=== PATIENT | male | born 1930 | race African-American/Black ===

== ENCOUNTER 2016-05-04 20:33 | Inpatient (IN) | payer BC, OTHER, MEDICAID ==
[~2016-05-04] VITALS: Ht 188 cm; Wt 99.3 kg
[2016-05-04 20:58] LABS: MEAN CORPUSCULAR HEMOGLOBIN 30.8 PG (27.0-31.0); MEAN CORPUSCULAR HGB CONC 32.8 G/DL (32.0-36.0); MEAN CORPUSCULAR VOLUME 94 FL (80-99); MEAN PLATELET VOLUME 6.2 FL (6.5-10.1); PLATELET COUNT 110 K/UL (150-450); RED BLOOD COUNT 2.87 M/UL (4.70-6.10); RED CELL DISTRIBUTION WIDTH 14.9 % (11.6-14.8); WHITE BLOOD COUNT 5.6 K/UL (4.8-10.8)
[2016-05-04 21:00] VITALS: BP 91/49
[2016-05-04 21:05] LABS: BASOPHILS % (AUTO) 0.4 % (0.0-2.0); EOSINOPHILS % (AUTO) 0.1 % (0.0-3.0); LYMPHOCYTES % (AUTO) 4.6 % (20.0-45.0); MONOCYTES % (AUTO) 2.9 % (1.0-10.0)
[2016-05-04 21:10] LABS: ALANINE AMINOTRANSFERASE 39 U/L (3-41); ALBUMIN/GLOBULIN RATIO 1.1 (1.0-2.7); ANION GAP 17 (5-15); ASPARTATE AMINO TRANSFERASE 52 U/L (5-40); CALCIUM 9.4 mg/dL (8.6-10.2); CARBON DIOXIDE 30 mEQ/L (20-30); CHLORIDE 92 mEQ/L (98-107); CREATININE 8.3 mg/dL (0.7-1.2); HEMOLYSIS 13; LIPASE 70 U/L (< 60); POTASSIUM 4.3 mEQ/L (3.4-4.9); SODIUM 139 mEQ/L (135-145); TOTAL PROTEIN 6.9 g/dL (6.6-8.7); TROPONIN I < 0.30 ng/mL (<=0.30)
[2016-05-04] MEDS ORDERED: SENSIPAR90 MG PO (21:15)
[2016-05-04] MEDS ORDERED: OXYCODONE-ACET1 EAC3 ORAL (21:15)
[2016-05-04] MEDS ORDERED: VITAMIN D1000 UNI1 ORAL (21:15)
[2016-05-04] MEDS ORDERED: ENSURE LIQUID237 ML PO (21:15)
[2016-05-04] MEDS ORDERED: LORATADINE10 M2 PO (21:15)
[2016-05-04] MEDS ORDERED: CALCIUM ACETAT667 M1 PO (21:15)
[2016-05-04] MEDS ORDERED: DOCUSATE SODIU250 MG ORAL (21:15)
[2016-05-04] MEDS ORDERED: DIALYVITE TABL1 EAC1 PO (21:15)
[2016-05-04 21:16] LABS: REFLEX LACTIC ACID YES OR NO YES
[2016-05-04 21:28] LABS: INR 1.1 (0.9-1.1); PROTHROMBIN TIME 10.7 SEC (9.30-11.50)
--- NOTE | 2016-05-04 22:56 | Emergency Room Report ---
History of Present Illness General Chief Complaint: Fever Source: Family Member, EMS Present Illness HPI The patient presents with altered mentation diarrhea and fever. He was complaining of abdominal pain earlier - it was generalized. He denies having abdominal pain at this time. His denies that he's been vomiting. She states he usually denies most symptoms. There's been no cough sore throat. The patient does not make urine at this time. He denies all other symptoms. The patient is a dialysis patient gets dialysis Friday and Friday. He is diabetic. Accucheck in field was in 100s. Allergies: Coded Allergies: No Known Allergies (Unverified , 05/04/16) Patient History Past Medical History: see triage record Social History Narrative Reviewed Nursing Documentation: PMH: Agreed, PSxH: Agreed Nursing Documentation-PMH Hx Diabetes: Yes Hx Dialysis: Yes - MWF Review of Systems All Other Systems: negative except mentioned in HPI - however, patient denies all symptoms Physical Exam Vital Signs Date Time Temp Pulse Resp B/P Pulse Ox O2 Delivery O2 Flow Rate FiO2 05/04/16 20:19 101.1 120 18 100/43 96 Room Air Sp02 EP Interpretation: reviewed, normal General Appearance: well appearing, no apparent distress, GCS 15 Head: normocephalic Eyes: bilateral eye PERRL, bilateral eye normal inspection ENT: moist mucus membranes Neck: supple Respiratory: lungs clear, normal breath sounds Cardiovascular #1: regular rate, rhythm Cardiovascular #2: 2+ radial (R) Gastrointestinal: normal inspection, normal bowel sounds, non tender, no mass, non-distended Musculoskeletal: back normal, normal range of motion Neurologic: alert, motor strength/tone normal, sensory intact, speech normal - though short answers, oriented - X2 Psychiatric: mood/affect normal Skin: normal inspection, warm/dry Procedures Critical Care Time Critical Care Time Critical Care Time Total Critical Care Time: 30 min bedside evaluation and treatment excludes procedures (EKG). Reason for critical care: sepsis, volume depletion. hypotension Possible complications: hypotension, shock, arrhythmias, metabolic acidosis, end organ damage, hypoglycemia. Interventions: Judicious hydration as patient with history of renal failure, repeated evaluations of hypotension, antibiotics, treatment of fever Course: Patient presented with abdominal pain and fever. Initial VS with fever and no hypotension. Patient became hypotensive. Repeated boluses with repeat evaluations as patient with renal failure (aneuric). Fever treated. CT abdomen not identify source, however broad spectrum antibiotics started. Discussions with family and admitting MD. Performed by: Dr. Carballo Tolerated well. Condition: serious Medical Decision Making Diagnostic Impression: Primary Impression: Severe sepsis Additional Impressions: Colitis ESRD (end stage renal disease) on dialysis ER Course Patient presents with fever, ALOC, diarrhea and h/o prior abdominal pain. DDx: colitis, gastroenteritis, UTI, diverticulitis, infection from other source. Emergent evaluation with labs including BC, lactic acid, EKG, CXR and CT abdomen /pelvis. Very difficult as patient denies all symptoms. Also does not produce urine. Finally, comorbidities of DM and ESRD. Treatment with fever control and consider antibiotic coverage when source identified. Blood pressure low. Patient clinically better. Labs with normal WBC (or low), low H/H, elevated lactate and renal disease. CXR elevated L hemidiaphragm. Giving boluses. Antibiotics ordered. CT without SBO. Several findings not identifiy source of infection. By history , suggest GI source. Discussed findings with family. Admit Dr. Mera, MIKE. Blood pressure improved with fluid boluses. Laboratory Tests Test 05/04/16 20:43 White Blood Count 5.6 K/UL (4.8-10.8) Red Blood Count 2.87 M/UL (4.70-6.10) L Hemoglobin 8.8 G/DL (14.2-18.0) L Hematocrit 26.9 % (42.0-52.0) L Mean Corpuscular Volume 94 FL (80-99) Mean Corpuscular Hemoglobin 30.8 PG (27.0-31.0) Mean Corpuscular Hemoglobin Concent 32.8 G/DL (32.0-36.0) Red Cell Distribution Width 14.9 % (11.6-14.8) H Platelet Count 110 K/UL (150-450) L Mean Platelet Volume 6.2 FL (6.5-10.1) L Neutrophils (%) (Auto) 92.0 % (45.0-75.0) H Lymphocytes (%) (Auto) 4.6 % (20.0-45.0) L Monocytes (%) (Auto) 2.9 % (1.0-10.0) Eosinophils (%) (Auto) 0.1 % (0.0-3.0) Basophils (%) (Auto) 0.4 % (0.0-2.0) Prothrombin Time 10.7 SEC (9.30-11.50) Prothrombin Time INR 1.1 (0.9-1.1) PTT 25 SEC (23-33) Sodium Level 139 mEQ/L (135-145) Potassium Level 4.3 mEQ/L (3.4-4.9) Chloride Level 92 mEQ/L (98-107) L Carbon Dioxide Level 30 mEQ/L (20-30) Anion Gap 17 (5-15) H Blood Urea Nitrogen 37 mg/dL (7-23) H Creatinine 8.3 mg/dL (0.7-1.2) H Estimate Glomerular Filtration Rate mL/min (>60) Glucose Level 130 mg/dL (74-106) H Lactic Acid Level 2.80 mmol/L (0.66-2.22) H Calcium Level 9.4 mg/dL (8.6-10.2) Total Bilirubin 0.4 mg/dL (0.0-1.2) Aspartate Amino Transferase (AST) 52 U/L (5-40) H Alanine Aminotransferase (ALT) 39 U/L (3-41) Alkaline Phosphatase 94 U/L (40-129) Total Creatine Kinase 147 U/L (38-174) Troponin I < 0.30 ng/mL (<=0.30) Pro-B-Type Natriuretic Peptide 1267 pg/mL (0-450) H Total Protein 6.9 g/dL (6.6-8.7) Albumin 3.7 g/dL (3.5-5.2) Globulin 3.2 g/dL Albumin/Globulin Ratio 1.1 (1.0-2.7) Lipase 70 U/L (< 60) H EKG Diagnostic Results Rate: tachycardiac ST Segments: no acute changes Rhythm Strip Diag. Results EP Interpretation: yes Rhythm: no PVC's, no ectopy, other - ST Chest X-Ray Diagnostic Results EP Interpretation: Yes Findings: no consolidation, no effusion, no pneumothorax, other - elevated L hemidiaphragm Number of Views: 1 CT/MRI/US Diagnostic Results CT/MRI/US Diagnostic Results : Imaging Test Ordered: abdomen pelvis Impression SB loops, no SBO, other findings not ID source of infection. Last Vital Signs Date Time Temp Pulse Resp B/P Pulse Ox O2 Delivery O2 Flow Rate FiO2 05/05/16 02:13 98.3 94 21 109/62 100 Room Air Status: improved Disposition: ADMITTED INPATIENT Condition: Serious Referrals: [facility],REFERRING (PCP) Torsten Carballo M.D. May 04, 2016 22:56
[2016-05-04] MEDS ORDERED: Vancomycin 1.5 GM in D5W 325 ML IVPB STA (22:59)
[2016-05-04] MEDS ORDERED: metroNIDAZOLE 500mg 100 ML IVPB ONE (23:00)
[2016-05-04] MEDS ORDERED: Cefepime HCl 1 GM in D5W 55 ML IVPB ONE (23:00)
[2016-05-04 23:30] VITALS: BP 67/39
[2016-05-04] MEDS ORDERED: Cefepime 1gm vial ONE (23:34)
[2016-05-05] VITALS (7 sets, daily range): BP systolic 83–109; BP diastolic 43–256
[2016-05-05] MEDS ORDERED: Vancomycin 1gm inj IVPB ONE (02:16)
[2016-05-05] MEDS ORDERED: LORATADINE10 M2 PO (04:45)
[2016-05-05] MEDS ORDERED: SENSIPAR90 MG PO (04:45)
[2016-05-05] MEDS ORDERED: ENSURE ACTIVE PO (04:45)
[2016-05-05] MEDS ORDERED: Oxycodone/Acetaminophen 5-325 ORAL PRN (04:45)
[2016-05-05] MEDS: metroNIDAZOLE 500mg 100 ML IVPB SCH ×3 (06:29→22:00)
[2016-05-05] MEDS: Calcium Acetate 667mg Tab ORAL SCH ×3 (08:56→18:09)
[2016-05-05] MEDS: Sensipar 30mg Tab ORAL SCH (08:56)
[2016-05-05] MEDS: Vitamin D 1000 IU Tab ORAL SCH (08:56)
[2016-05-05] MEDS: Heparin 5000 units/ml inj SUBQ SCH ×2 (08:57→21:00)
[2016-05-05] MEDS ORDERED: Docusate 250mg cap ORAL SCH (09:00)
[2016-05-05] MEDS ORDERED: NS 275ml ONE (11:20)
[2016-05-05] MEDS ORDERED: Tubing IV Secondary IV ONE (11:20)
--- NOTE | 2016-05-05 18:45 | Cardiology Report ---
APPROVED REPORT EKG Measurement Heart [id number] Sinus tachycardia with premature atrial complexes Otherwise normal ECG
--- NOTE | 2016-05-05 19:48 | Consultation ---
DATE OF CONSULTATION: 05/05/2016 NEPHROLOGY CONSULTATION CONSULTING PHYSICIAN: Thad Baires M.D. REFERRING PHYSICIAN: Daniel Mera M.D. REASONS FOR CONSULTATION: End-stage renal disease. HISTORY OF PRESENT ILLNESS: The patient is a fair historian, but he is sleepy and unable to give a lot of details. He apparently has been on dialysis for two to five years or more and presents with some abdominal pain and diarrhea and generalized weakness. There is a concern about sepsis. There is a history of diabetes and hypertension, although he says he is not diabetic, so it is not clear what is correct. He was thought to have sepsis in the emergency room and admitted to the hospital. Chest x-ray showed no infiltrate, and a CT abdomen showed small bowel loops with no obstruction or obvious source of infection. The patient is anuric. PAST MEDICAL HISTORY: There is a history of glaucoma and prostate cancer. PAST SURGICAL HISTORY: Surgeries include left arm AV fistula; old access, right arm; and esquivel to the left arm. ALLERGIES: None known. MEDICATIONS: Per the chart at home included calcium acetate, vitamin D3, cinacalcet, DSS, folic acid, Ensure, loratadine, and Percocet. HABITS: He quit smoking and alcohol many years ago. No drugs. SOCIAL HISTORY: He lives with his . He receives his dialysis at the [facility] SYSTEM REVIEW: HEAD EYES, EARS, NOSE, AND THROAT: He has mild vision and hearing impairment. ENDOCRINE: Questionable diabetes as above. He is not aware of thyroid disease. PULMONARY: No asthma or TB. CARDIAC: History of hypertension. He denies angina or [place]. GASTROINTESTINAL: History of some diarrhea, nausea, and vomiting. GENITOURINARY: He is anuric. NEUROLOGIC: No history of stroke or seizures. MUSCULOSKELETAL: History of some arthritis and he walks with a cane. PHYSICAL EXAMINATION: GENERAL: The patient is an alert man, lying in bed, in no acute distress. VITAL SIGNS: Last night, his blood pressure was as low as 67/39 and temperature as high as 102.9. Current vital signs, temperature 97.2, pulse 84, respirations 20, heart rate 101, blood pressure 83/25 and 109/59. HEAD, EYES, EARS, NOSE, AND THROAT: Sclerae nonicteric. Ocular motions intact in all directions. Oral mucosa moist. NECK: No adenopathy or thyroid enlargement. LUNGS: Clear. HEART: Rhythm is regular. Normal S1 and S2. I hear no murmur. ABDOMEN: Soft. There is no focal tenderness. EXTREMITIES: No edema, cyanosis, or clubbing. NEUROLOGIC: The patient is alert and responsive. Ocular motions intact in all directions. Smile symmetric. Tongue is midline. He moves all extremities equally. He has had weakness in his left arm, apparently following surgeries for esquivel and trauma to the left arm. REVIEW OF PERTINENT LABS: Sodium 139, potassium is 4.3, BUN 37, creatinine 8.3, and glucose 130. Lactic acid 2.8 and 1.0. BNP is 1267. Lipase elevated at 70. White count 5.6 and hemoglobin is 8.8. IMPRESSION: 1. End-stage renal disease. 2. Sepsis with high fever, tachycardia, and hypotension. 3. Systemic inflammatory response syndrome. 4. Hypotension, possibly underlying cardiomyopathy. 5. Etiology of sepsis is unclear. Occult vascular access problem was concerning. He could have occult intra-abdominal problem in view of the diarrhea or gastroenteritis. PLAN: The patient was pain cultured and put on broad-spectrum antibiotics. He will be given fluid bolus for his hypotension. Dialysis will be arranged. The patient is a high risk in view of his age and end-stage renal disease. Thank you so much for allowing me to participate in the care of this patient. Thad Baires M.D. DR: LINDSAY JOB#: [id number] CC:
--- NOTE | 2016-05-05 20:37 | History & Physical ---
History and Physical History & Physicial #[id number] SHAYE ESTEVEZ DO May 05, 2016 20:37
[2016-05-05] MEDS ORDERED: Cefepime HCl 1 GM in D5W 55 ML IVPB SCH (23:00)
[2016-05-06] VITALS: BP 110/58
[2016-05-06 04:00] VITALS: BP 102/52
--- NOTE | 2016-05-06 05:08 | History and Physical Report ---
DATE OF ADMISSION: 05/04/2016 REASON FOR ADMISSION: Diarrhea. HISTORY OF PRESENT ILLNESS: This is a gentleman who is noted to be with altered mental status, diarrhea, fever, and abdominal pain. No chest pain. No coughing of blood. No hematochezia, melena, or hematuria. He is a dialysis patient on Friday, Friday, and Friday and is otherwise in his normal state of health. He has had no fevers. His blood sugars have been stable. He was seen in the emergency room and given intravenous fluids, nebulizer treatments, and started on intravenous antibiotics. He had an abdominal CT and pelvis that showed small bowel loops. No small bowel obstruction. No other source of infection. PAST MEDICAL HISTORY: Hypertension, renal failure, on dialysis, seasonal allergies, and chronic pain. PAST SURGICAL HISTORY: Multiple dialysis accesses. SOCIAL HISTORY: Negative for tobacco, alcohol, or drugs. FAMILY HISTORY: Noncontributory. MEDICATIONS: Reviewed, reconciled and documented in the electronic medical record of [facility]. PHYSICAL EXAMINATION: GENERAL: At the time of my exam, he is alert and oriented, in no acute distress. He is afebrile. VITAL SIGNS: Currently, his pulse is 95, blood pressure is 102/52, and he is 100% on room air. HEENT: Normocephalic and atraumatic. NECK: Supple without lymphadenopathy or thyromegaly. LUNGS: Decreased at the bases. No wheeze present. HEART: Regular rhythm without a murmur. ABDOMEN: Soft and nontender. Bowel sounds are present. EXTREMITIES: No edema. SKIN: He has no skin rashes, wounds, or lesions are present. LABORATORY VALUES: Yesterday, white count 5.6, hemoglobin 8.8, and platelets are 110,000. His sodium is 139, potassium 4.2, chloride 82, bicarbonate 30, BUN 37, creatinine 8.3, and glucose is 130. Lactic acid was initially at 2.8 and repeat was 1. His LFTs were essentially normal. Troponins negative. BNP was mildly elevated at 1276. Chest x-ray was obtained and CT scan was obtained and reports have been noted in the medical records. ASSESSMENT AND PLAN: Nausea, vomiting, abdominal pain, and renal failure on dialysis with elevated creatinine of 8.3. No other source of infection has been ascertained. The patient was placed on antibiotics and will continue for the next 24 to 48 hours. If cultures remain negative, we will discontinue his dialysis on Friday morning. DVT prophylaxis. Home medications removed. Aspiration precautions and we will follow the patient. Christin Craig D.O. DR: MIRIAM JOB#: [id number] CC:
[2016-05-06] MEDS: metroNIDAZOLE 500mg 100 ML IVPB SCH ×2 (06:50→14:00)
[2016-05-06 08:00] VITALS: BP 90/51
[2016-05-06] MEDS ORDERED: Heparin Sod 1000 units/ml 10ml IV SCH (08:00)
[2016-05-06 08:27] LABS: ALANINE AMINOTRANSFERASE 42 U/L (3-41); ANION GAP 15 (5-15); ASPARTATE AMINO TRANSFERASE 36 U/L (5-40); CALCIUM 8.7 mg/dL (8.6-10.2); CARBON DIOXIDE 27 mEQ/L (20-30); CHLORIDE 95 mEQ/L (98-107); CREATININE 10.9 mg/dL (0.7-1.2); HEMOLYSIS 0; PHOSPHORUS 4.1 mg/dL (2.5-4.8); POTASSIUM 5.1 mEQ/L (3.4-4.9); SODIUM 137 mEQ/L (135-145)
[2016-05-06 08:30] LABS: MEAN CORPUSCULAR HEMOGLOBIN 31.6 PG (27.0-31.0); MEAN CORPUSCULAR HGB CONC 34.1 G/DL (32.0-36.0); MEAN CORPUSCULAR VOLUME 93 FL (80-99); MEAN PLATELET VOLUME 7.1 FL (6.5-10.1); PLATELET COUNT 116 K/UL (150-450); RED BLOOD COUNT 2.48 M/UL (4.70-6.10); RED CELL DISTRIBUTION WIDTH 15.4 % (11.6-14.8); WHITE BLOOD COUNT 10.8 K/UL (4.8-10.8)
[2016-05-06] MEDS: Sensipar 30mg Tab ORAL SCH (08:34)
[2016-05-06] MEDS: Calcium Acetate 667mg Tab ORAL SCH ×3 (08:34→18:34)
[2016-05-06] MEDS: Vitamin D 1000 IU Tab ORAL SCH (08:34)
[2016-05-06] MEDS: Heparin 5000 units/ml inj SUBQ SCH ×2 (08:35→21:00)
[2016-05-06] MEDS ORDERED: Heparin Sod 1000 units/ml 10ml IV PRN (11:00)
[2016-05-06] MEDS ORDERED: Oxycodone/Acetaminophen 5-325 ORAL PRN ×2 (11:00→16:45)
[2016-05-06] MEDS ORDERED: Docusate 250mg cap ORAL SCH (11:00)
[2016-05-06 11:31] LABS: BAND NEUTROPHILS % (MANUAL) 1 % (0-8); BASOPHILS % (MANUAL) 0 % (0-2); EOSINOPHILS % (MANUAL) 0 % (0-3); HYPOCHROMASIA 3+; LYMPHOCYTES % (MANUAL) 11 % (20-45); NEUTROPHILS % (MANUAL) 77 % (45-75); PLATELET ESTIMATE DECREASED; PLATELET MORPHOLOGY NORMAL; TOTAL CELLS COUNTED 100
[2016-05-06 12:00] VITALS: BP 104/60
--- NOTE | 2016-05-06 13:34 | General Progress Note ---
Assessment/Plan Status: doing well Assessment/Plan no more fever cultures neg so far cont HD dc planning Fever, possible shunt infx renal failure Subjective Constitutional: Denies: chills, diaphoresis, fever, malaise, other, weakness Allergies: Coded Allergies: No Known Allergies (Unverified , 05/04/16) Objective Last 24 Hour Vital Signs Date Time Temp Pulse Resp B/P Pulse Ox O2 Delivery O2 Flow Rate FiO2 05/06/16 12:00 97.9 87 18 104/60 99 Room Air 05/06/16 08:00 104 05/06/16 08:00 97.3 97 18 90/51 98 Room Air 05/06/16 04:00 98.6 81 18 102/52 95 Room Air 05/06/16 04:00 81 05/06/16 00:00 98.0 88 20 110/58 94 Room Air 05/05/16 23:51 98 05/05/16 20:00 101 05/05/16 20:00 98.6 81 18 102/52 95 Room Air 05/05/16 16:00 98.1 90 18 98/56 97 Room Air 05/05/16 16:00 94 Intake and Output 05/05/16 05/06/16 19:00 07:00 Intake Total 1280 ml 605 ml Balance 1280 ml 605 ml Intake Oral 580 ml 350 ml IV Total 700 ml 255 ml # Voids 3 # Bowel Movements 4 1 Laboratory Tests 05/06/16 03:35: White Blood Count 10.8#, Red Blood Count 2.48L, Hemoglobin 7.9L, Hematocrit 23.0L, Mean Corpuscular Volume 93, Mean Corpuscular Hemoglobin 31.6H, Mean Corpuscular Hemoglobin Concent 34.1, Red Cell Distribution Width 15.4H, Platelet Count 116L, Mean Platelet Volume 7.1, Neutrophils (%) (Auto) , Lymphocytes (%) (Auto) , Monocytes (%) (Auto) , Eosinophils (%) (Auto) , Basophils (%) (Auto) , Differential Total Cells Counted 100, Neutrophils % ( Manual) 77H, Lymphocytes % (Manual) 11L, Monocytes % (Manual) 11H, Eosinophils % (Manual) 0, Basophils % (Manual) 0, Band Neutrophils 1, Platelet Estimate DecreasedL, Platelet Morphology Normal, Hypochromasia 3+, Sodium Level 137, Potassium Level 5.1H, Chloride Level 95L, Carbon Dioxide Level 27, Anion Gap 15 , Blood Urea Nitrogen 54H, Creatinine 10.9H, Estimat Glomerular Filtration Rate , Glucose Level 109H, Calcium Level 8.7, Phosphorus Level 4.1, Total Bilirubin 0.3, Aspartate Amino Transf (AST/SGOT) 36, Alanine Aminotransferase (ALT/SGPT) 42H, Alkaline Phosphatase 140H, Total Protein 6.0L, Albumin 3.0L, Globulin 3.0, Albumin/Globulin Ratio 1.0 05/06/16 09:45: Hepatitis B Surface Antigen [Pending], Hepatitis B Surface Antibody [Pending], Hepatitis C Antibody [Pending] Height (Feet): 6 Height (Inches): 2.00 Weight (Pounds): 219 General Appearance: no apparent distress Neck: supple Cardiovascular: normal rate, regular rhythm Respiratory/Chest: lungs clear Abdomen: non tender, soft DANIEL LA May 06, 2016 13:34
--- NOTE | 2016-05-06 15:37 | Nephrology Progress Note ---
Assessment/Plan Problem List: (1) Dehydration (2) Hypotension (3) Diarrhea (4) ESRD (end stage renal disease) on dialysis (5) Colitis (6) Severe sepsis Plan dialysis 05/06 avoid excess fluid removal Subjective Constitutional: Reports: weakness HEENT: Reports: no symptoms Genitourinary: Reports: no symptoms Neurologic/Psychiatric: Reports: no symptoms Subjective weak, mild gi upset Objective Objective Last 24 Hour Vital Signs Date Time Temp Pulse Resp B/P Pulse Ox O2 Delivery O2 Flow Rate FiO2 05/06/16 12:00 97.9 87 18 104/60 99 Room Air 05/06/16 08:00 104 05/06/16 08:00 97.3 97 18 90/51 98 Room Air 05/06/16 04:00 98.6 81 18 102/52 95 Room Air 05/06/16 04:00 81 05/06/16 00:00 98.0 88 20 110/58 94 Room Air 05/05/16 23:51 98 05/05/16 20:00 101 05/05/16 20:00 98.6 81 18 102/52 95 Room Air 05/05/16 16:00 98.1 90 18 98/56 97 Room Air 05/05/16 16:00 94 Intake and Output 05/05/16 05/06/16 19:00 07:00 Intake Total 1280 ml 605 ml Balance 1280 ml 605 ml Intake Oral 580 ml 350 ml IV Total 700 ml 255 ml # Voids 3 # Bowel Movements 4 1 Laboratory Tests 05/06/16 03:35: White Blood Count 10.8#, Red Blood Count 2.48L, Hemoglobin 7.9L, Hematocrit 23.0L, Mean Corpuscular Volume 93, Mean Corpuscular Hemoglobin 31.6H, Mean Corpuscular Hemoglobin Concent 34.1, Red Cell Distribution Width 15.4H, Platelet Count 116L, Mean Platelet Volume 7.1, Neutrophils (%) (Auto) , Lymphocytes (%) (Auto) , Monocytes (%) (Auto) , Eosinophils (%) (Auto) , Basophils (%) (Auto) , Differential Total Cells Counted 100, Neutrophils % ( Manual) 77H, Lymphocytes % (Manual) 11L, Monocytes % (Manual) 11H, Eosinophils % (Manual) 0, Basophils % (Manual) 0, Band Neutrophils 1, Platelet Estimate DecreasedL, Platelet Morphology Normal, Hypochromasia 3+, Sodium Level 137, Potassium Level 5.1H, Chloride Level 95L, Carbon Dioxide Level 27, Anion Gap 15 , Blood Urea Nitrogen 54H, Creatinine 10.9H, Estimat Glomerular Filtration Rate , Glucose Level 109H, Calcium Level 8.7, Phosphorus Level 4.1, Total Bilirubin 0.3, Aspartate Amino Transf (AST/SGOT) 36, Alanine Aminotransferase (ALT/SGPT) 42H, Alkaline Phosphatase 140H, Total Protein 6.0L, Albumin 3.0L, Globulin 3.0, Albumin/Globulin Ratio 1.0 05/06/16 09:45: Hepatitis B Surface Antigen [Pending], Hepatitis B Surface Antibody [Pending], Hepatitis C Antibody [Pending] Height (Feet): 6 Height (Inches): 2.00 Weight (Pounds): 219 General Appearance: no apparent distress, alert EENT: normal ENT inspection Neck: non-tender, normal alignment Cardiovascular: normal peripheral pulses, regular rhythm Respiratory/Chest: chest wall non-tender, lungs clear, normal breath sounds Abdomen: non tender, soft Extremities: other - no edema 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
[2016-05-06 20:00] VITALS: BP 113/41
[2016-05-07] VITALS: BP 114/67
[2016-05-07] MEDS ORDERED: Cefepime HCl 500 MG in D5W 55 ML IV SCH ×2
[2016-05-07] MEDS: Epogen (for ESRD on dialysis) SUBQ SCH (02:43)
[2016-05-07] MEDS: metroNIDAZOLE 500mg 100 ML IVPB SCH ×4 (03:18→20:19)
[2016-05-07 04:00] VITALS: BP 111/77
[2016-05-07 07:16] LABS: BASOPHILS % (AUTO) 0.5 % (0.0-2.0); EOSINOPHILS % (AUTO) 0.9 % (0.0-3.0); LYMPHOCYTES % (AUTO) 11.9 % (20.0-45.0); MEAN CORPUSCULAR HEMOGLOBIN 30.8 PG (27.0-31.0); MEAN CORPUSCULAR HGB CONC 33.5 G/DL (32.0-36.0); MEAN CORPUSCULAR VOLUME 92 FL (80-99); MONOCYTES % (AUTO) 12.6 % (1.0-10.0); NEUTROPHILS % (AUTO) 74.1 % (45.0-75.0); PLATELET COUNT 119 K/UL (150-450); RED BLOOD COUNT 2.72 M/UL (4.70-6.10); RED CELL DISTRIBUTION WIDTH 15.1 % (11.6-14.8); WHITE BLOOD COUNT 8.4 K/UL (4.8-10.8)
[2016-05-07 07:49] LABS: ALANINE AMINOTRANSFERASE 32 U/L (3-41); ALBUMIN/GLOBULIN RATIO 1.3 (1.0-2.7); ANION GAP 16 (5-15); ASPARTATE AMINO TRANSFERASE 19 U/L (5-40); CALCIUM 8.7 mg/dL (8.6-10.2); CARBON DIOXIDE 28 mEQ/L (20-30); CHLORIDE 93 mEQ/L (98-107); CREATININE 7.4 mg/dL (0.7-1.2); HEMOLYSIS 3; POTASSIUM 4.1 mEQ/L (3.4-4.9); SODIUM 137 mEQ/L (135-145); TOTAL PROTEIN 5.8 g/dL (6.6-8.7)
[2016-05-07 08:00] VITALS: BP 105/62
[2016-05-07] MEDS: Heparin 5000 units/ml inj SUBQ SCH ×2 (09:00→20:14)
[2016-05-07] MEDS: Vitamin D 1000 IU Tab ORAL SCH (09:09)
[2016-05-07] MEDS: Cefepime HCl 500 MG in D5W 55 ML IV SCH (09:09)
[2016-05-07] MEDS: Calcium Acetate 667mg Tab ORAL SCH ×3 (09:09→17:12)
[2016-05-07] MEDS: Sensipar 30mg Tab ORAL SCH (09:10)
[2016-05-07] MEDS ORDERED: Vancomycin 1.5 GM in D5W 325 ML IVPB SCH (10:00)
[2016-05-07 12:00] VITALS: BP 105/69
--- NOTE | 2016-05-07 13:06 | General Progress Note ---
Assessment/Plan Assessment/Plan no more fever cultures neg so far cont HD diarrhea x 3 today stool c diff; flagyl called GI Fever, possible shunt infx renal failure diarrhea Subjective Gastrointestinal/Abdominal: Reports: diarrhea, nausea Allergies: Coded Allergies: No Known Allergies (Unverified , 05/04/16) Objective Last 24 Hour Vital Signs Date Time Temp Pulse Resp B/P Pulse Ox O2 Delivery O2 Flow Rate FiO2 05/07/16 12:00 98.2 87 17 105/69 98 Room Air 05/07/16 08:00 98.1 92 18 105/62 97 Room Air 05/07/16 04:00 97.5 75 20 111/77 Room Air 05/07/16 01:02 Room Air 05/07/16 00:00 97.0 89 18 114/67 97 Room Air 05/06/16 21:40 Room Air 05/06/16 20:00 98.1 90 20 113/41 98 Room Air Intake and Output 05/06/16 05/07/16 19:00 07:00 Intake Total 340 ml 580 ml Balance 340 ml 580 ml Intake Oral 240 ml 480 ml IV Total 100 ml 100 ml # Bowel Movements 1 1 Laboratory Tests 05/07/16 05:00: White Blood Count 8.4, Red Blood Count 2.72L, Hemoglobin 8.4L, Hematocrit 25.0L , Mean Corpuscular Volume 92, Mean Corpuscular Hemoglobin 30.8, Mean Corpuscular Hemoglobin Concent 33.5, Red Cell Distribution Width 15.1H, Platelet Count 119L, Mean Platelet Volume 7.0, Neutrophils (%) (Auto) 74.1, Lymphocytes (%) (Auto) 11.9L, Monocytes (%) (Auto) 12.6H, Eosinophils (%) (Auto ) 0.9, Basophils (%) (Auto) 0.5, Sodium Level 137, Potassium Level 4.1, Chloride Level 93L, Carbon Dioxide Level 28, Anion Gap 16H, Blood Urea Nitrogen 33H, Creatinine 7.4H, Estimat Glomerular Filtration Rate , Glucose Level 108H, Calcium Level 8.7, Total Bilirubin 0.3, Aspartate Amino Transf (AST/SGOT) 19, Alanine Aminotransferase (ALT/SGPT) 32, Alkaline Phosphatase 81, Total Protein 5.8L, Albumin 3.3L, Globulin 2.5, Albumin/Globulin Ratio 1.3, Random Vancomycin Level < 2.0 Height (Feet): 6 Height (Inches): 2.00 Weight (Pounds): 219 General Appearance: no apparent distress Cardiovascular: normal rate Respiratory/Chest: lungs clear Abdomen: non tender DANIEL LA May 07, 2016 13:06
[2016-05-07 16:00] VITALS: BP 101/56
[2016-05-07] MEDS ORDERED: NS 550ML IV ONE (18:48)
[2016-05-07 20:00] VITALS: BP 102/65
[2016-05-08] VITALS: BP 100/55
[2016-05-08 04:00] VITALS: BP 102/57
[2016-05-08] MEDS: metroNIDAZOLE 500mg 100 ML IVPB SCH ×3 (06:08→22:09)
[2016-05-08 08:00] VITALS: BP 105/58
[2016-05-08] MEDS: Sensipar 30mg Tab ORAL SCH (08:45)
[2016-05-08] MEDS: Vitamin D 1000 IU Tab ORAL SCH (08:45)
[2016-05-08] MEDS: Cefepime HCl 500 MG in D5W 55 ML IV SCH (08:45)
[2016-05-08] MEDS: Heparin 5000 units/ml inj SUBQ SCH ×2 (08:46→21:00)
[2016-05-08] MEDS: Calcium Acetate 667mg Tab ORAL SCH ×3 (08:46→18:54)
--- NOTE | 2016-05-08 09:18 | General Progress Note ---
Assessment/Plan Assessment/Plan no more fever cultures neg cont HD diarrhea x 1 today stool c diff neg; flagyl rx called GI; did not see yet Fever, possible shunt infx renal failure diarrhea, c diff neg, improving possible dc tomorrow Subjective Constitutional: Denies: fever Gastrointestinal/Abdominal: Reports: diarrhea Allergies: Coded Allergies: No Known Allergies (Unverified , 05/04/16) Objective Last 24 Hour Vital Signs Date Time Temp Pulse Resp B/P Pulse Ox O2 Delivery O2 Flow Rate FiO2 05/08/16 08:00 98.0 98 19 105/58 98 Room Air 05/08/16 04:00 97.7 102 18 102/57 99 Room Air 05/08/16 00:00 97.9 93 20 100/55 98 Room Air 05/07/16 20:00 98.2 93 17 102/65 99 Room Air 05/07/16 16:00 98.2 92 17 101/56 97 Room Air 05/07/16 12:00 98.2 87 17 105/69 98 Room Air Intake and Output 05/07/16 05/08/16 19:00 07:00 Intake Total 622.5 ml 400 ml Balance 622.5 ml 400 ml Intake Oral 360 ml 300 ml IV Total 262.5 ml 100 ml # Bowel Movements 3 Laboratory Tests 05/08/16 05:40: Random Vancomycin Level 14.8 Height (Feet): 6 Height (Inches): 2.00 Weight (Pounds): 219 General Appearance: no apparent distress Cardiovascular: normal rate Respiratory/Chest: lungs clear Abdomen: non tender, soft DANIEL LA May 08, 2016 09:18
[2016-05-08 12:00] VITALS: BP 118/70
[2016-05-08 16:30] VITALS: BP 99/62
[2016-05-08 17:43] LABS: MEAN CORPUSCULAR HEMOGLOBIN 30.7 PG (27.0-31.0); MEAN CORPUSCULAR HGB CONC 32.8 G/DL (32.0-36.0); MEAN CORPUSCULAR VOLUME 94 FL (80-99); MEAN PLATELET VOLUME 6.1 FL (6.5-10.1); PLATELET COUNT 106 K/UL (150-450); RED BLOOD COUNT 2.53 M/UL (4.70-6.10); RED CELL DISTRIBUTION WIDTH 14.7 % (11.6-14.8)
[2016-05-08 18:09] LABS: ANION GAP 21 (5-15); CALCIUM 8.6 mg/dL (8.6-10.2); CARBON DIOXIDE 24 mEQ/L (20-30); CHLORIDE 95 mEQ/L (98-107); CREATININE 9.4 mg/dL (0.7-1.2); HEMOLYSIS 18; POTASSIUM 5.2 mEQ/L (3.4-4.9); SODIUM 140 mEQ/L (135-145)
[2016-05-08 19:35] LABS: ANISOCYTOSIS 1+; BAND NEUTROPHILS % (MANUAL) 1 % (0-8); BASOPHILS % (MANUAL) 0 % (0-2); EOSINOPHILS % (MANUAL) 1 % (0-3); LYMPHOCYTES % (MANUAL) 18 % (20-45); NEUTROPHILS % (MANUAL) 65 % (45-75); NUCLEATED RED BLOOD CELLS 2 /100 WBC; PLATELET ESTIMATE DECREASED; PLATELET MORPHOLOGY NORMAL; POLYCHROMASIA 1+; TOTAL CELLS COUNTED 100
[2016-05-08] MEDS ORDERED: Heparin Sod 1000 units/ml 10ml IV PRN (19:45)
[2016-05-08 20:00] VITALS: BP 111/64
[2016-05-08] MEDS ORDERED: Vancomycin 1gm/D5W 275ml IVPB ONE ×2 (20:00)
--- NOTE | 2016-05-08 21:36 | Nephrology Progress Note ---
Assessment/Plan Problem List: (1) Dehydration (2) Hypotension (3) Diarrhea (4) ESRD (end stage renal disease) on dialysis (5) Colitis (6) Severe sepsis Plan dialysis 05/08 avoid excess fluid removal as low nl bp and diarrhea Subjective Constitutional: Reports: weakness HEENT: Reports: no symptoms Genitourinary: Reports: no symptoms Subjective weak, mild gi upset Objective Objective Last 24 Hour Vital Signs Date Time Temp Pulse Resp B/P Pulse Ox O2 Delivery O2 Flow Rate FiO2 05/08/16 20:00 97.9 88 21 111/64 99 Room Air 05/08/16 16:30 98.0 91 20 99/62 98 Room Air 05/08/16 12:00 97.3 96 18 118/70 100 Room Air 05/08/16 08:00 98.0 98 19 105/58 98 Room Air 05/08/16 04:00 97.7 102 18 102/57 99 Room Air 05/08/16 00:00 97.9 93 20 100/55 98 Room Air Intake and Output 05/07/16 05/08/16 19:00 07:00 Intake Total 622.5 ml 400 ml Balance 622.5 ml 400 ml Intake Oral 360 ml 300 ml IV Total 262.5 ml 100 ml # Bowel Movements 3 Laboratory Tests 05/08/16 05:40: White Blood Count 8.0, Red Blood Count 2.53L, Hemoglobin 7.8L, Hematocrit 23.7L , Mean Corpuscular Volume 94, Mean Corpuscular Hemoglobin 30.7, Mean Corpuscular Hemoglobin Concent 32.8, Red Cell Distribution Width 14.7, Platelet Count 106L, Mean Platelet Volume 6.1L, Neutrophils (%) (Auto) , Lymphocytes (%) (Auto) , Monocytes (%) (Auto) , Eosinophils (%) (Auto) , Basophils (%) (Auto) , Differential Total Cells Counted 100, Neutrophils % (Manual) 65, Lymphocytes % ( Manual) 18L, Monocytes % (Manual) 15H, Eosinophils % (Manual) 1, Basophils % ( Manual) 0, Band Neutrophils 1, Nucleated Red Blood Cells 2, Platelet Estimate DecreasedL, Platelet Morphology Normal, Polychromasia 1+, Anisocytosis 1+, Sodium Level 140, Potassium Level 5.2H, Chloride Level 95L, Carbon Dioxide Level 24, Anion Gap 21H, Blood Urea Nitrogen 49H, Creatinine 9.4H, Estimat Glomerular Filtration Rate , Glucose Level 77, Calcium Level 8.6, Random Vancomycin Level 14.8 Height (Feet): 6 Height (Inches): 2.00 Weight (Pounds): 219 General Appearance: no apparent distress, alert EENT: normal ENT inspection Neck: normal alignment Cardiovascular: normal rate, regular rhythm Respiratory/Chest: lungs clear Abdomen: non tender Extremities: other - no edema Neurologic: environmental health physician II-XII grossly normal KAREN POLLOCK May 08, 2016 21:36
[2016-05-08] MEDS: Epogen (for ESRD on dialysis) SUBQ SCH (21:39)
--- NOTE | 2016-05-08 21:44 | General Progress Note ---
Assessment/Plan Assessment/Plan Gi Consult Dictated Thank you Villa Harkins MD Subjective Allergies: Coded Allergies: No Known Allergies (Unverified , 05/04/16) Objective Last 24 Hour Vital Signs Date Time Temp Pulse Resp B/P Pulse Ox O2 Delivery O2 Flow Rate FiO2 05/08/16 20:00 97.9 88 21 111/64 99 Room Air 05/08/16 16:30 98.0 91 20 99/62 98 Room Air 05/08/16 12:00 97.3 96 18 118/70 100 Room Air 05/08/16 08:00 98.0 98 19 105/58 98 Room Air 05/08/16 04:00 97.7 102 18 102/57 99 Room Air 05/08/16 00:00 97.9 93 20 100/55 98 Room Air Intake and Output 05/07/16 05/08/16 19:00 07:00 Intake Total 622.5 ml 400 ml Balance 622.5 ml 400 ml Intake Oral 360 ml 300 ml IV Total 262.5 ml 100 ml # Bowel Movements 3 Laboratory Tests 05/08/16 05:40: White Blood Count 8.0, Red Blood Count 2.53L, Hemoglobin 7.8L, Hematocrit 23.7L , Mean Corpuscular Volume 94, Mean Corpuscular Hemoglobin 30.7, Mean Corpuscular Hemoglobin Concent 32.8, Red Cell Distribution Width 14.7, Platelet Count 106L, Mean Platelet Volume 6.1L, Neutrophils (%) (Auto) , Lymphocytes (%) (Auto) , Monocytes (%) (Auto) , Eosinophils (%) (Auto) , Basophils (%) (Auto) , Differential Total Cells Counted 100, Neutrophils % (Manual) 65, Lymphocytes % ( Manual) 18L, Monocytes % (Manual) 15H, Eosinophils % (Manual) 1, Basophils % ( Manual) 0, Band Neutrophils 1, Nucleated Red Blood Cells 2, Platelet Estimate DecreasedL, Platelet Morphology Normal, Polychromasia 1+, Anisocytosis 1+, Sodium Level 140, Potassium Level 5.2H, Chloride Level 95L, Carbon Dioxide Level 24, Anion Gap 21H, Blood Urea Nitrogen 49H, Creatinine 9.4H, Estimat Glomerular Filtration Rate , Glucose Level 77, Calcium Level 8.6, Random Vancomycin Level 14.8 Height (Feet): 6 Height (Inches): 2.00 Weight (Pounds): 219 VILLA HARKINS May 08, 2016 21:44
[2016-05-08] MEDS ORDERED: NS 275ml ONE (22:09)
[2016-05-08] MEDS ORDERED: Tubing IV Secondary IV ONE (22:09)
[2016-05-09] VITALS: BP 105/62
[2016-05-09 04:00] VITALS: BP 100/59
[2016-05-09] MEDS: metroNIDAZOLE 500mg 100 ML IVPB SCH (05:37)
[2016-05-09 08:00] VITALS: BP 98/55
[2016-05-09] MEDS ORDERED: Cefepime HCl 500 MG in NS 55 ML IV SCH (08:00)
[2016-05-09] MEDS: Lactobacillus-GG tablet ORAL SCH ×2 (08:29→13:40)
[2016-05-09] MEDS: Calcium Acetate 667mg Tab ORAL SCH ×2 (08:29→13:40)
[2016-05-09] MEDS: Heparin 5000 units/ml inj SUBQ SCH (08:30)
[2016-05-09] MEDS: Sensipar 30mg Tab ORAL SCH (08:30)
[2016-05-09] MEDS: Vitamin D 1000 IU Tab ORAL SCH (08:30)
--- NOTE | 2016-05-09 08:58 | Consultation ---
DATE OF CONSULTATION: 05/08/2016 GASTROLOGY CONSULTATION CHIEF COMPLAINT: I was asked to see this patient by Dr. Daniel Mera for evaluation of diarrhea. HISTORY: The patient is a very pleasant 86-year-old man who is a poor historian, on dialysis. The patient comes in to the hospital with some dizziness. The patient also reports some diarrhea. for four or five days. There has been no nausea, vomiting, or hematochezia, although in the past has had hematochezia and solid stool occasionally. He has had a colonoscopy five years ago at the [facility] where he gets all of his care. He denies any weight loss or any fevers or chills. He has had no recent antibiotics and no recent travel. There are also no contacts with diarrhea. PAST MEDICAL HISTORY: As above. History of end-stage renal disease, on dialysis, glaucoma, and prostate cancer. PAST SURGICAL HISTORY: Status post left arm AV fistula. SOCIAL HISTORY: The patient lives with his . He quit smoking and alcohol nine years ago. FAMILY HISTORY: Noncontributory. REVIEW OF SYSTEMS: Otherwise negative. PHYSICAL EXAMINATION: GENERAL: This is a pleasant man, seen in his room. HEENT: Normocephalic and atraumatic. Sclerae anicteric. Oropharynx clear. NECK: Supple. CHEST: Clear to auscultation. CARDIOVASCULAR: Revealed a regular rate. ABDOMEN: Soft with good bowel sounds. EXTREMITIES: Revealed no edema. LABORATORY DATA: Noted. ASSESSMENT: This patient presents with diarrheal illness with acute onset for the past four days or so. There is no serious feature such as sepsis or hematochezia or other pathology to suggest a more significant underlying pathology. The patient may have a followup for viral gastroenteritis, which may result. His Clostridium difficile is negative. Other cultures have not been ordered and I will order these, which includes regular cultures with parasites evaluation. I will also order stool for blood. Should the patient appear to be stable, he can be discharged and he can be followed as an outpatient. I have advised the patient to follow with the [facility] shortly after discharge to arrange for followup with stool culture as well as to arrange for colonoscopy since he has not had one for over five years and he has intermittent bleeding. RECOMMENDATIONS: Per above discussion and per orders written in the chart. Thank you for asking me to participate in the care of this patient. Villa Harkins M.D. DR: DELPHINE JOB#: [id number] CC:
--- NOTE | 2016-05-09 09:59 | General Progress Note ---
Assessment/Plan Assessment/Plan Assessment - Diarrhea, acute - ESRD - Resolved dizzyness - h/o prostate CA Recommendations - await stool cultures (C Diff neg) - push po - d/c planning per PMD - pt to f/u at [facility] Subjective Allergies: Coded Allergies: No Known Allergies (Unverified , 05/04/16) Subjective Feels OK some loose stools BM x 3 yesterday tolerating PO Objective Last 24 Hour Vital Signs Date Time Temp Pulse Resp B/P Pulse Ox O2 Delivery O2 Flow Rate FiO2 05/09/16 08:00 97.5 89 18 98/55 97 Room Air 05/09/16 04:00 97.6 89 18 100/59 99 Room Air 05/09/16 01:53 Room Air 05/09/16 00:00 97.5 91 18 105/62 99 Room Air 05/08/16 22:00 Room Air 05/08/16 20:00 97.9 88 21 111/64 99 Room Air 05/08/16 16:30 98.0 91 20 99/62 98 Room Air 05/08/16 12:00 97.3 96 18 118/70 100 Room Air Intake and Output 05/08/16 05/09/16 19:00 07:00 Intake Total 700 ml 1590 ml Output Total 1750 ml Balance 700 ml -160 ml Intake Oral 700 ml 840 ml Blood Product 250 ml Hemodialysis 500 ml Hemodialysis UF 1750 ml # Bowel Movements 2 Laboratory Tests 05/09/16 09:30: Stool Occult Blood [Pending] Height (Feet): 6 Height (Inches): 2.00 Weight (Pounds): 219 Objective WDWN AA man NCAT supple CTA RRR Soft ND NT no edema nonfocal HUSSAIN GARCÍA May 09, 2016 09:59
[2016-05-09 12:00] VITALS: BP 95/60
[2016-05-09 13:04] LABS: OTHERS PATHOLOGIST COMMENT
[2016-05-09] MEDS ORDERED: metroNIDAZOLE 500mg tab ORAL SCH (14:00)
[2016-05-09] MEDS ORDERED: Heparin Sod 1000 units/ml 10ml IV PRN (15:30)
[2016-05-09 16:00] VITALS: BP 118/59
[2016-05-09] MEDS ORDERED: FLAGYL500 MG ORAL (17:25)
--- NOTE | 2016-05-09 17:31 | Discharge Summary ---
Discharge Summary Hospital Course Date of Admission May 04, 2016 at 22:00 Date of Discharge 05/09/16 Admitting Diagnosis Sepsis HPI Erick العلي is a 86 year old male who was admitted on May 04, 2016 at 22:00 for Sepsis Consultations GI, renal Procedures transfusion 2 u PRBC dialysis Hospital Course adm w fever and no evident source BC GPC clusters better w vanco, 2 doses given 05/04, 05/08 diarrhea, c diff neg, better w flagyl Fever, due to shunt infx renal failure on HD diarrhea, c diff neg, improving anemia, transfused Discharge Medications New Medications: Metronidazole* (Flagyl*) 500 Mg Tablet 500 MG ORAL Q8HR, #15 TAB Continued Medications: Calcium Acetate (Calcium Acetate) 667 Mg Capsule 667 MG PO, CAP Cholecalciferol (Vitamin D3)* (Vitamin D*) 1,000 Unit Tablet 1000 UNIT ORAL DAILY, #30 TAB Cinacalcet Hcl (Sensipar) 90 Mg Tablet 90 MG PO, TAB Docusate Sodium* (Docusate Sodium*) 250 Mg Capsule 250 MG ORAL TWICE A DAY, CAP Folic Acid/Vitamin B Comp W-C (Dialyvite Tablet) 1 Each Tablet 1 EACH PO, TAB Lactose-Free Food (Ensure Liquid) 237 Ml Liquid 237 ML PO, ML Loratadine (Loratadine) 10 Mg Tablet 10 MG PO, TAB Oxycodone Hcl/Acetaminophen 5-325* (Oxycodone-Acetaminophen 5-325*) 1 Each Tablet 1 TAB ORAL Q6H PRN for For Pain, #30 TAB 0 Refills Discharge Condition Upon Discharge: improving Discharge Disposition Patient was discharged to home Discharge Diagnoses: (1) Severe sepsis (2) ESRD (end stage renal disease) on dialysis (3) Colitis (4) Dehydration (5) Diarrhea (6) Hypotension DANIEL LA May 09, 2016 17:31
[2016-05-09] MEDS ORDERED: Tubing Blood Filter IV ONE (17:50)
--- NOTE | 2016-05-15 11:43 | Diagnostic Imaging Report ---
Clinical Indication: Technique: Patient given oral contrast. Abdominal pain liter Multiphasic spiral acquisitions obtained through the abdomen and pelvis. Multiplanar reconstructions were generated. Total dose length product 969 mGycm. CTDIvol(s) 18 mGy Comparison: None Findings: Exam is limited. There is marked elevation of the left hemidiaphragm, and the scanning volume does not extend to the top of the elevated left hemidiaphragm. There is a small fat-containing left inguinal hernia. There is colonic diverticulosis. No evidence of diverticulitis. The appendix is normal. No free or loculated air or fluid. The distal esophagus, visualized portions of the stomach, and duodenum are unremarkable. Proximal small bowel loops are prominent in caliber, but no transition point is noted. There is an exophytic 5 cm mass coming off of the interpolar region of the right kidney. Low proteinaceous cysts a low-attenuation is mixed and visually the appearance is suggestive of solid mass, is actually fairly low in attenuation so could represent a complicated cyst. The kidneys also demonstrate multiple cysts bilaterally, as well as subcentimeter low-attenuation lesions which are too small to characterize. No renal or ureteral calculi. There is no hydronephrosis or hydroureter. The liver demonstrates a complex mass versus collection of low-attenuation masses in the dome of segment 7. In aggregate, this measures 3.5 cm diameter. The gallbladder is nondistended. The pancreas is unremarkable. The visualized portions of the spleen are unremarkable, but portions of spleen are excluded from the imaging volume. The adrenals are somewhat bulky but without discrete abnormality. Numerous metallic foreign bodies are seen within the prostate, suspect these represent radiation seed implants. No pelvic mass or adenopathy. The rectum or mesenteric mass or adenopathy. The distal common iliac and proximal internal iliac artery on the left are ectatic but not quite aneurysmal. The included lung bases demonstrate minimal posterior dependent atelectasis on the right. Only a small portion of the left lung base is included. There are marked degenerative changes of the lumbar spine. Impression: Limited exam, as described 5 cm mass coming off of the interpolar region of the right kidney. Attenuation indeterminate, could represent a complex cyst but neoplasm cannot be fully ruled out. Recommend ultrasound for further evaluation Complex mass versus collection low-attenuation masses in the dome of segment 7. Although possibly a cluster of cysts, possibility of neoplasm or abscess is not excluded. Nonspecific prominence of proximal small bowel loops, but no definite evidence of small bowel obstruction. Significance uncertain, but could represent mild ileus or enteritis changes, or just be baseline for this patient No definite acute abdominal or pelvic process Diverticulosis. No evidence of diverticulitis Evidence of prior prostate radiation seed implants Bilateral renal cysts. Bilateral subcentimeter low-attenuation renal lesions, too small to characterize, no further followup needed Other findings as noted, including degenerative lumbar spondylosis, dependent pulmonary parenchymal atelectatic changes, fat-containing left inguinal hernia This agrees with the preliminary interpretation provided overnight by Dr. Lemus The CT scanner at [facility] is accredited by the [employer] and the scans are performed using protocols designed to limit radiation exposure to as low as reasonably achievable to attain images of sufficient resolution adequate for diagnostic evaluation.
--- NOTE | 2016-05-15 11:43 | Diagnostic Imaging Report ---
Indication: Chest pain Technique: One view of the chest Comparison: none Findings: Left hemidiaphragm is elevated. The lungs and pleural spaces are otherwise clear. Heart size is probably normal, although left heart border is obscured by the elevated left hemidiaphragm Impression: No acute process Marked elevation left hemidiaphragm This agrees with the preliminary interpretation provided by the emergency room physician
== END 2016-05-09 18:50 | disposition home or self-care (01) | DRG 314 ==
LOC: EDBD 20:33 → EMR 21:29 → 2W 22:00 → EDBEDREQ 23:05 → EDBEDREQSVC 23:05 → EDBEDREQ 05-05 00:33 → 4W 05-06 11:25
PROC: 5A1D60Z (ICD-10-PCS; principal; 2016-05-06)
PROC: 30233N1 Transfusion of Nonautologous Red Blood Cells into Peripheral Vein, Percutaneous Approach (ICD-10-PCS; 2016-05-09)
DX: T82.7XXA Infection and inflammatory reaction due to other cardiac and vascular devices, implants and grafts, initial encounter (principal); A41.9 Sepsis, unspecified organism; N18.6 End stage renal disease; R65.20 Severe sepsis without septic shock; I12.0 Hypertensive chronic kidney disease with stage 5 chronic kidney disease or end stage renal disease; I42.9 Cardiomyopathy, unspecified; E86.0 Dehydration; K52.9 Noninfective gastroenteritis and colitis, unspecified; Z99.2 Dependence on renal dialysis; Z85.46 Personal history of malignant neoplasm of prostate; Y84.1 Kidney dialysis as the cause of abnormal reaction of the patient, or of later complication, without mention of misadventure at the time of the procedure; Y92.238 Other place in hospital as the place of occurrence of the external cause
CPT/HCPCS: 36415; 71010; 74177; 80048; 80053; 80202; 82270; 82550; 83605; 83690; 83880; 84100; 84484; 85007; 85025; 85610; 85730; 86803; 86850; 86900; 86901; 86920; 87040; 87045; 87181; 87324; 87340; 87517; 93005